=== PATIENT | male | born 1965 | race Caucasian/White ===

== ENCOUNTER → 2024-07-30 | Outpatient (BNVA) | payer MEDICAID, SELFPAY | END | disposition home or self-care (01) | PROVIDERS: PCP Nurse Practitioner Family; Referring Provider Nurse Practitioner Family; Visit Provider Urology | DX: N40.1 Benign prostatic hyperplasia with lower urinary tract symptoms (principal); N13.8 Other obstructive and reflux uropathy; I13.0 Hypertensive heart and chronic kidney disease with heart failure and stage 1 through stage 4 chronic kidney disease, or unspecified chronic kidney disease; E11.22 Type 2 diabetes mellitus with diabetic chronic kidney disease; N18.30 Chronic kidney disease, stage 3 unspecified; I50.9 Heart failure, unspecified; I48.91 Unspecified atrial fibrillation; N20.0 Calculus of kidney | CPT/HCPCS: 81003; 99212; G0463 ==

== ENCOUNTER → 2024-09-03 | Outpatient (CLI) | payer MEDICAID, SELFPAY | END | disposition home or self-care (01) | PROVIDERS: PCP Obstetrics & Gynecology; Referring Provider Obstetrics & Gynecology; Visit Provider Surgery | DX: E11.621 Type 2 diabetes mellitus with foot ulcer (principal); L97.422 Non-pressure chronic ulcer of left heel and midfoot with fat layer exposed; S91.102A Unspecified open wound of left great toe without damage to nail, initial encounter; S91.301A Unspecified open wound, right foot, initial encounter; X58.XXXA Exposure to other specified factors, initial encounter; I10 Essential (primary) hypertension; N18.9 Chronic kidney disease, unspecified; I50.9 Heart failure, unspecified; Z72.0 Tobacco use; E11.40 Type 2 diabetes mellitus with diabetic neuropathy, unspecified; Z79.84 Long term (current) use of oral hypoglycemic drugs; M10.9 Gout, unspecified; I49.9 Cardiac arrhythmia, unspecified; I48.91 Unspecified atrial fibrillation | CPT/HCPCS: 11042; 99213; A9270; G0463 ==

== ENCOUNTER → 2024-09-10 | Outpatient (CLI) | payer MEDICAID, SELFPAY | END | disposition home or self-care (01) | LOC: SWHD 08:34 | PROVIDERS: PCP Nurse Practitioner Family; Referring Provider Nurse Practitioner Family; Visit Provider Student in an Organized Health Care Education/Training Program | DX: E11.621 Type 2 diabetes mellitus with foot ulcer (principal); L97.422 Non-pressure chronic ulcer of left heel and midfoot with fat layer exposed; S91.102A Unspecified open wound of left great toe without damage to nail, initial encounter; S91.301A Unspecified open wound, right foot, initial encounter; X58.XXXA Exposure to other specified factors, initial encounter; I10 Essential (primary) hypertension; N18.9 Chronic kidney disease, unspecified; I50.9 Heart failure, unspecified; Z72.0 Tobacco use; E11.40 Type 2 diabetes mellitus with diabetic neuropathy, unspecified; Z79.84 Long term (current) use of oral hypoglycemic drugs; M10.9 Gout, unspecified; I49.9 Cardiac arrhythmia, unspecified; I48.91 Unspecified atrial fibrillation | CPT/HCPCS: 11042; A9270 ==

== ENCOUNTER → 2024-09-17 | Outpatient (CLI) | payer MEDICAID, SELFPAY | END | disposition home or self-care (01) | LOC: SWHD 09:05 | PROVIDERS: PCP Nurse Practitioner Family; Referring Provider Nurse Practitioner Family; Visit Provider Student in an Organized Health Care Education/Training Program | DX: E11.621 Type 2 diabetes mellitus with foot ulcer (principal); L97.422 Non-pressure chronic ulcer of left heel and midfoot with fat layer exposed; S91.102A Unspecified open wound of left great toe without damage to nail, initial encounter; S91.301A Unspecified open wound, right foot, initial encounter; X58.XXXA Exposure to other specified factors, initial encounter; N18.9 Chronic kidney disease, unspecified; I50.9 Heart failure, unspecified; Z72.0 Tobacco use; E11.40 Type 2 diabetes mellitus with diabetic neuropathy, unspecified; Z79.84 Long term (current) use of oral hypoglycemic drugs; M10.9 Gout, unspecified; I49.9 Cardiac arrhythmia, unspecified; I48.91 Unspecified atrial fibrillation | CPT/HCPCS: 11042; A9270 ==

== ENCOUNTER → 2024-10-01 | Outpatient (CLI) | payer MEDICAID, SELFPAY | END | disposition home or self-care (01) | LOC: SWHD 08:49 | PROVIDERS: PCP Nurse Practitioner Family; Referring Provider Nurse Practitioner Family; Visit Provider Student in an Organized Health Care Education/Training Program | DX: I96 Gangrene, not elsewhere classified (principal); E11.621 Type 2 diabetes mellitus with foot ulcer; L97.422 Non-pressure chronic ulcer of left heel and midfoot with fat layer exposed; S91.102A Unspecified open wound of left great toe without damage to nail, initial encounter; S91.301A Unspecified open wound, right foot, initial encounter; X58.XXXA Exposure to other specified factors, initial encounter; N18.9 Chronic kidney disease, unspecified; I50.9 Heart failure, unspecified; E11.40 Type 2 diabetes mellitus with diabetic neuropathy, unspecified; Z79.84 Long term (current) use of oral hypoglycemic drugs; M10.9 Gout, unspecified; I49.9 Cardiac arrhythmia, unspecified; I48.91 Unspecified atrial fibrillation | CPT/HCPCS: 11042; A9270 ==

== ENCOUNTER → 2024-10-15 | Outpatient (CLI) | payer MEDICAID, SELFPAY | END | disposition home or self-care (01) | LOC: SWHD 08:53 | PROVIDERS: PCP Nurse Practitioner Family; Referring Provider Nurse Practitioner Family; Visit Provider Student in an Organized Health Care Education/Training Program | DX: E11.621 Type 2 diabetes mellitus with foot ulcer (principal); L97.422 Non-pressure chronic ulcer of left heel and midfoot with fat layer exposed; S91.102A Unspecified open wound of left great toe without damage to nail, initial encounter; S91.301A Unspecified open wound, right foot, initial encounter; X58.XXXA Exposure to other specified factors, initial encounter; N18.9 Chronic kidney disease, unspecified; I50.9 Heart failure, unspecified; E11.40 Type 2 diabetes mellitus with diabetic neuropathy, unspecified; Z79.84 Long term (current) use of oral hypoglycemic drugs; M10.9 Gout, unspecified; I49.9 Cardiac arrhythmia, unspecified; I48.91 Unspecified atrial fibrillation | CPT/HCPCS: 11042; A9270 ==

== ENCOUNTER → 2024-11-06 | Outpatient (CLI) | payer MEDICAID, SELFPAY | END | disposition home or self-care (01) | LOC: SWHD 08:45 | PROVIDERS: PCP Nurse Practitioner Family; Referring Provider Nurse Practitioner Family; Visit Provider Student in an Organized Health Care Education/Training Program | DX: E11.621 Type 2 diabetes mellitus with foot ulcer (principal); L97.422 Non-pressure chronic ulcer of left heel and midfoot with fat layer exposed; S91.102A Unspecified open wound of left great toe without damage to nail, initial encounter; S91.301A Unspecified open wound, right foot, initial encounter; X58.XXXA Exposure to other specified factors, initial encounter; N18.9 Chronic kidney disease, unspecified; I50.9 Heart failure, unspecified; E11.40 Type 2 diabetes mellitus with diabetic neuropathy, unspecified; Z79.84 Long term (current) use of oral hypoglycemic drugs; M10.9 Gout, unspecified; I49.9 Cardiac arrhythmia, unspecified; I48.91 Unspecified atrial fibrillation | CPT/HCPCS: 11042; A9270 ==

== ENCOUNTER → 2024-11-20 | Outpatient (CLI) | payer MEDICAID, SELFPAY | END | disposition home or self-care (01) | LOC: SWHD 08:34 | PROVIDERS: PCP Nurse Practitioner Family; Referring Provider Nurse Practitioner Family; Visit Provider Surgery | DX: E11.621 Type 2 diabetes mellitus with foot ulcer (principal); L97.422 Non-pressure chronic ulcer of left heel and midfoot with fat layer exposed; S91.102A Unspecified open wound of left great toe without damage to nail, initial encounter; S91.301A Unspecified open wound, right foot, initial encounter; X58.XXXA Exposure to other specified factors, initial encounter; N18.9 Chronic kidney disease, unspecified; I50.9 Heart failure, unspecified; E11.40 Type 2 diabetes mellitus with diabetic neuropathy, unspecified; Z79.84 Long term (current) use of oral hypoglycemic drugs; M10.9 Gout, unspecified; I49.9 Cardiac arrhythmia, unspecified; I48.91 Unspecified atrial fibrillation | CPT/HCPCS: 11042; A9270 ==

== ENCOUNTER → 2024-12-07 | Outpatient (CLI) | payer MEDICAID, SELFPAY | END | disposition home or self-care (01) | LOC: SWHD 13:12 | PROVIDERS: PCP Nurse Practitioner Family; Referring Provider Nurse Practitioner Family; Visit Provider Surgery | DX: L97.422 Non-pressure chronic ulcer of left heel and midfoot with fat layer exposed (principal); S91.102A Unspecified open wound of left great toe without damage to nail, initial encounter; S91.301A Unspecified open wound, right foot, initial encounter; X58.XXXA Exposure to other specified factors, initial encounter; N18.9 Chronic kidney disease, unspecified; I50.9 Heart failure, unspecified; E11.40 Type 2 diabetes mellitus with diabetic neuropathy, unspecified; Z79.84 Long term (current) use of oral hypoglycemic drugs; M10.9 Gout, unspecified; I49.9 Cardiac arrhythmia, unspecified; I48.91 Unspecified atrial fibrillation | CPT/HCPCS: 11042; 97597; A9270 ==

== ENCOUNTER 2025-02-21 08:50 | Emergency (ER) | payer MEDICAID, SELFPAY ==
--- NOTE | 2025-02-21 09:03 | XR_ITS ---
Examination: Shoulder,right, 3 views Technique: Shoulder AP internal rotation, AP external rotation, Y view shoulder, 3 views Exam date and time :February 21, 2025, 0933 hrs. Indications: Patient fell several months ago with injury to the shoulder, shoulder pain. Findings: No acute fracture. No shoulder dislocation. Moderate osteoarthritis glenohumeral joint Impression: Moderate osteoarthritis glenohumeral joint
--- NOTE | 2025-02-21 09:03 | XR_ITS ---
Examination: Cervical spine 4 views Technique: AP, lateral, swimmer's lateral, coned AP odontoid cervical spine 4 views Date and time: February 21, 2025, 0925 hrs. Indications: Patient fell several months ago with injury to the neck, neck pain. Findings: Reversal normal cervical lordosis No acute cervical fracture. Minimal anterolisthesis C3 on C4 secondary to advanced degenerative disc disease C4-C5, C5-C6, C6-C7 The odontoid is intact Impression: No acute cervical fracture
[2025-02-21 09:10] VITALS: BP 138/69; PULSE 62; RESP 20; TEMP 36.7; O2SAT 97; BMI 23.1
--- NOTE | 2025-02-21 10:15 | PD.EDUPEX ---
Upper Extremity Injury RME/HPI General Chief Complaint: Extremity Injury, Upper Stated Complaint: right shoulder numb, painful Time Seen by Provider: 02/21/25 08:53 Arrival date/time: 02/21/25 08:50 This is a case of 59-year-old male who came into the emergency room due to right shoulder pain radiating to the right side of the neck on and off for 6 months patient was seen by the primary care physician and was treated only for arthritis worsening of this pain today this patient decided to start consult here in the emergency room denies any chest pain shortness of breath or palpitation denies any numbness weakness tingling sensation or incontinence to urine or stool denies any injury or trauma Limitations: no limitations Related Data Home Medications ?Medication ?Instructions ?Recorded ?Confirmed trazodone 100 mg tablet 100 mg PO HS 06/19/21 07/30/24 oxycodone 30 mg tablet 30 mg PO BID 06/20/21 07/30/24 albuterol 90 mcg/actuation aerosol 180 mcg inhalation [id number] PRN 04/23/22 07/30/24 inhaler Shortness Of Breath carvedilol 3.125 mg tablet 1 tab PO BID 04/23/22 07/30/24 cyclobenzaprine 10 mg tablet 1 tab PO TID 04/23/22 07/30/24 gabapentin 600 mg tablet 1 tab PO TID 04/23/22 07/30/24 loratadine 10 mg tablet 10 mg PO QDAY 04/23/22 07/30/24 semaglutide 0.25 mg or 0.5 mg (2 0.5 mg subcut QWEEK 04/23/22 07/30/24 mg/1.5 mL) subcutaneous pen injector (Ozempic) metformin 500 mg tablet 500 mg PO BID 07/30/24 07/30/24 rivaroxaban 20 mg tablet (Xarelto) 20 mg PO QDAY 07/30/24 07/30/24 Previous Rx's ?Medication ?Instructions ?Recorded cyclobenzaprine 10 mg tablet 10 mg PO BID PRN muscle spasm #10 02/21/25 tabs tramadol 50 mg tablet 50 mg PO Q8H PRN pain #12 tabs 02/21/25 Allergies Allergy/AdvReac Type Severity Reaction Status Date / Time No Known Allergies Allergy Verified 02/21/25 08:59 Review of Systems Review of Systems Systems Reviewed: All systems reviewed, normal except as documented Constitutional Constitutional: Reports system reviewed and no additional complaints, except as documented and Reports as per HPI ENT Ears, Nose, Mouth, and Throat: Reports neck pain Cardiovascular Cardiovascular: Reports system reviewed and no additional complaints, except as documented and Reports as per HPI Respiratory Respiratory: Reports system reviewed and no additional complaints, except as documented and Reports as per HPI Gastrointestinal Gastrointestinal: Reports system reviewed and no additional complaints, except as documented and Reports as per HPI Musculoskeletal Musculoskeletal: Reports system reviewed and no additional complaints, except as documented, Reports as per HPI, Denies abnormal gait, Denies arthralgias, Denies atrophy, Denies back pain, Denies deformity, Denies joint swelling, Denies limited range of motion, Denies loss of height, Denies muscle cramps, Denies muscle weakness, Denies myalgias, Reports neck pain, Denies numbness, Denies radiating pain into limb, Denies stiffness and Denies tingling Neurologic Neurologic: Reports system reviewed and no additional complaints, except as documented, Reports as per HPI, Denies abnormal gait, Denies numbness and Denies tingling Past Medical History Past Medical History NEUROLOGIC: Negative Seizures CARDIAC: Positive Congestive Heart Failure and Hypertension; Negative Cardiac Disorders RESPIRATORY: Negative Chronic Obstructive Pulmonary Disease (COPD) or Asthma GENITOURINARY: Negative Renal Disease MUSCULOSKELETAL: Positive Arthritis ENDOCRINE: Positive Endocrine Disorders and Diabetes Mellitus Type 2; Negative Diabetes Mellitus Type 1 HEMATOLOGIC: Negative Sickle Cell Disease OTHER HISTORY: Negative Autoimmune Disease, Falls, Blood Transfusions, Blood Transfusion Reaction or Anesthesia Reactions Family History FAMILY HISTORY: Positive Family Respiratory Disorders, Family Cardiac Disorders and Family Cancer; Negative Family Psychiatric Problems, Family Gastrointestinal Problems, Family Surgery or Family Anesthesia Reaction Surgical History SURGICAL: Positive Abdominal Surgery Social History SMOKING STATUS: Current every day smoker SUBSTANCE USE: marijuana ED Exam General Limitations: Present no limitations General appearance: Present alert and in no apparent distress Head Head exam: Present atraumatic, normocephalic and normal inspection Eye Eye exam: Present normal appearance, PERRL and EOMI ENT ENT exam: Present normal exam, normal oropharynx and mucous membranes moist Neck Neck exam: Present normal inspection, full ROM, trachea midline and tenderness (Mild tenderness on the right posterior neck no crepitation no deformity no swelling no redness negative paraspinal or paravertebral tenderness no CVA tenderness steady gait leg raise exam is normal); Absent meningismus, lymphadenopathy or thyromegaly Chest Chest inspection: Present normal inspection and symmetric chest wall rise; Absent tenderness or rash Respiratory Respiratory exam: Present normal lung sounds bilaterally; Absent respiratory distress, wheezes, stridor, accessory muscle use or prolonged expiratory phase Cardiovascular Cardiovascular exam: Present regular rate, normal rhythm and normal heart sounds; Absent bradycardia, tachycardia, irregular rhythm or systolic murmur Abdominal Exam Abdominal exam: Present soft and normal bowel sounds Extremities Exam Extremities exam: Present normal inspection and full ROM Expanded Upper Extremity Exam Shoulder exam: Present normal inspection and tenderness (Mild tenderness on the right shoulder no crepitation no deformity no redness no swelling ROM limited due to pain neurovascular intact); Absent swelling, abrasion, laceration, ecchymosis, deformity, crepitus, dislocation, erythema or tenderness over AC joint Arm exam: Present normal inspection and full ROM; Absent tenderness or swelling Back Exam Back exam: Present normal inspection and full ROM; Absent tenderness, CVA tenderness (R), CVA tenderness (L), muscle spasm, paraspinal tenderness, vertebral tenderness, rashes, sciatic notch tenderness (R), sciatic notch tenderness (L), straight leg raise (R) or straight leg raise (L) Neurological Exam Neurological exam: Present alert, oriented X3, CN II-XII intact, normal gait and reflexes normal; Absent motor sensory deficit Psychiatric Psychiatric exam: Present normal affect and normal mood Skin Skin exam: Present warm, dry, intact and normal color Course Quality Measures none Orders Category Date Time Status sling [Splint / Immobilizer] STAT Care 02/21/25 09:03 Active XR cervical spine 2-3V Stat Exams 02/21/25 09:03 Completed XR shoulder RT min 2V Stat Exams 02/21/25 09:03 Completed Dexamethasone Inj [Decadron Inj] Med 02/21/25 09:03 Discontinued 10 mg IM X1 ONE Ketorolac Inj [Toradol Inj] Med 02/21/25 09:03 Discontinued 30 mg IM X1 ONE Vital Signs Vital signs: Vital Signs Temperature 98.1 F 02/21/25 09:10 Pulse Rate 62 02/21/25 09:10 Respiratory Rate 20 02/21/25 09:10 Blood Pressure 138/69 H 02/21/25 09:10 Pulse Oximetry (%) 97 02/21/25 09:10 Oxygen Delivery Method Room Air 02/21/25 09:10 Patient vital signs stable BP stable not tachycardic not tachypneic not hypoxic oxygen saturation is 97% in room air Extremity Injury MDM Narrative MDM Narrative:: This is a case of 59-year-old male who came into the emergency room due to right shoulder pain radiating to the right side of the neck on and off for 6 months patient was seen by the primary care physician and was treated only for arthritis worsening of this pain today this patient decided to start consult here in the emergency room denies any chest pain shortness of breath or palpitation denies any numbness weakness tingling sensation or incontinence to urine or stool denies any injury or trauma physical examination patient is awake alert oriented not in distress nontoxic looking noted mild to moderate tenderness on palpation on the right side of the neck and right shoulder no crepitation no deformity no redness no swelling ROM is limited due to pain in the right shoulder neurovascular intact patient has no paraspinal no paravertebral tenderness no crepitation no deformity leg raise exam is normal at the time of exam no signs and symptoms of cauda equina x-ray of the right shoulder showed osteoarthritis x-ray of the cervical showed DDD cervical I have a long discussion with the patient patient needs to see a neurosurgeon for possible MRI to rule out herniated disc on the cervical area and to be referred for Ortho for osteoarthritis of her right shoulder patient was given sling patient tolerated well neurovascular intact patient was given Toradol and dexamethasone which pain improved and resolved patient was prescribed with Flexeril for muscle relaxant and tramadol for pain and he was advised not to take the medication at the same time Patient was discharged with comfortable condition walking with stable gait. Patient verbalized no further complains explained diagnosis and answered patient question. Patient is comfortable with the proposed management plan including the need to follow up with his/her primary care physician and any specialist if applicable Discussed patient for any urgent condition or worsening sx, He/She needed to go to emergency room immediately or call 911. Patient acknowledge the responsibility to follow up as instructed and to monitor her/his symptoms. For any persistence of the symptoms for more than 3-5 days return precaution advised. Discussed the result of the test and was given printed discharge instruction Patient data External records reviewed:: [facility] previous records Clinical information provided by:: patient Social determinants that could affect healthcare access:: none Patient has the following chronic illnesses:: None How is presenting disease/condition affected by chronic disease/condition?: no chronic disease Evaluation data The following diagnostics were reviewed and interpreted by me:: radiology exam(s) Lab and/or radiology exams considered but not ordered:: Reviewed Interpretation Summary: Reviewed Medications / Prescriptions Medications or Prescriptions considered but not ordered:: Given Medication administrations:: Medication Administration History Discontinued Medications Dexamethasone Sodium Phosphate (Dexamethasone Sod Phos Inj 10 Mg/Ml Vial) 10 mg IM X1 ONE Stop: 02/21/25 09:04 Ketorolac Tromethamine (Ketorolac Inj 60 Mg/2 Ml Vial) 30 mg IM X1 ONE Stop: 02/21/25 09:04 Given Consultations Consultation(s) initiated? (list below): No Diagnosis Upper Extremity Injury Differential Diagnosis: other (DDD cervical osteoarthritis) Most likely diagnosis given after review of the tests above:: DDD cervical osteoarthritis Admission Indicated Admission indicated?: not indicated Admission Request Was there a request for admission?: No Admission Attestation Admission request attestation: Not indicated Disposition Plan Disposition Plan: Discharge Discharge Attestation Discharge Attestation: The patient and all family members were given an opportunity to ask questions and understood the discharge instructions. Discharge instructions specifically effects, indications for sooner follow up or return to the emergency department, and the expected course of current diagnosis. Patient condition: Stable Discharge Plan Plan Patient Disposition: HOME (Self Care) Prescriptions/Referrals Prescriptions/Med Rec: New tramadol 50 mg tablet 50 mg PO Q8H PRN (Reason: pain) Qty: 12 0RF cyclobenzaprine 10 mg tablet 10 mg PO BID PRN (Reason: muscle spasm) Qty: 10 0RF Rx Instructions: Do not take with tramadol at the same time No Action metformin 500 mg tablet 500 mg PO BID Xarelto 20 mg tablet 20 mg PO QDAY Rx Instructions: must administer with evening meal trazodone 100 mg tablet 100 mg PO HS Patient Comments: TAKE ONE TABLET BY MOUTH EVERY EVENING AT BED TIME oxycodone 30 mg tablet 30 mg PO BID Patient Comments: TAKE ONE TABLET BY MOUTH TWICE DAILY gabapentin 600 mg tablet 1 tab PO TID Ozempic 0.25 mg or 0.5 mg(2 mg/1.5 mL) Pen Injector 0.5 mg SUBCUT QWEEK cyclobenzaprine 10 mg tablet 1 tab PO TID carvedilol 3.125 mg tablet 1 tab PO BID Patient Comments: TAKE ONE TABLET BY MOUTH TWICE DAILY FOR BLOOD PRESSURE WITH FOOD loratadine 10 mg Tablet 10 mg PO QDAY albuterol 90 mcg/actuation Aerosol 180 mcg INHALATION [id number] PRN (Reason: Shortness Of Breath) Rx Instructions: q 4 to 6 hours Referrals: Kat Braun, [employer] NURSERYMAN [Primary Care Provider] - In 1 week Problem List Clinical Impression: Osteoarthritis, DDD (degenerative disc disease), cervical, Acute pain of right shoulder Patient/Caregiver Discharge Instructions Education Materials: Cervical Disk Problems, ED Degenerative Disk Disease, Osteoarthritis Additional Instructions: Follow-up with your primary care physician in 2 days for reevaluation and to be referred to a neurosurgeon for further evaluation and treatment of DDD cervical to have MRI to rule out herniated disks you need also to see a orthopedic surgeon for further evaluation and treatment of your osteoarthritis of the right shoulder ice pack and warm compress as needed for pain worsening symptoms or any emergent concerns such as numbness weakness tingling sensation incontinence to urine or stool call 911 or go to the nearest emergency room keep the sling in place until cleared by your primary care physician Print Language: Macedonian Stand Alone Forms: Michelle Award Info., Patient Portal Info Letter PA/PROCUREMENT ENGINEER Supervising Physician PA/PROCUREMENT ENGINEER Supervising Physician: dr [email or web address]
[2025-02-21] MEDS: KETOROLAC INJ 60 MG/2 ML VIAL 30 MG IM (11:06)
[2025-02-21] MEDS: DEXAMETHASONE SOD PHOS INJ 10 MG/ML VIAL IM (11:07)
== END 2025-02-21 11:16 | disposition home or self-care (01) ==
PROVIDERS: Emergency Provider Emergency Medicine; PCP Nurse Practitioner Family
DX: M19.011 Primary osteoarthritis, right shoulder (principal); M54.2 Cervicalgia
CPT/HCPCS: 72040; 73030; 96372; 99283; J1100; J1885

== ENCOUNTER 2025-07-10 13:34 | Emergency (ER) | payer MEDICAID, SELFPAY ==
[2025-07-10 14:19] VITALS: BP 144/74; PULSE 80; RESP 20; TEMP 37.1; O2SAT 95; BMI 26.4
--- NOTE | 2025-07-10 14:38 | XR_ITS ---
Examination: CT abdomen with intravenous contrast CT pelvis with intravenous contrast 2-D coronal reconstructions 2-D sagittal reconstructions Date and time of exam: July 10, 2025, 1646 hours, comparison CT chest abdomen pelvis April 07, 2025 INDICATIONS: Blunt trauma to the abdomen, patient fell on the right side of the abdomen with mid abdominal pain and back pain today. CTDI: vol (mGy) 9.77 DLP: (mGycm) 579 Technique: Multiple axial sections of the abdomen and pelvis have been obtained. 64 slice high-resolution scanner used. 3 mm axial sections have been obtained, post intravenous injection 60 cc [id number] 2-D sagittal, coronal reconstructions obtained. Low dose protocols were performed. One or more of the following dose reduction techniques were used; automated exposure control, adjustment of the mA and/or KV according to patient size, use of iterative reconstruction technique. Findings: Multiple old left-sided rib fractures including nonunion left old 10th rib fracture Large left pleural effusion with atelectasis left lower lobe Pneumonia versus contusion left lower lobe axial image 4 No liver splenic or renal laceration, right renal calculi, the largest 6 mm Normal appendix Negative for pneumoperitoneum Abdominal aorta is intact, calcified No free body in the abdomen or pelvis Normal seminal vesicles Mild prostatomegaly Urinary bladder intact with urinary bladder wall thickening anteriorly up to 9 mm Small fat-containing left inguinal hernia Grade 1 spondylolisthesis L5 on S1 No acute lumbar fracture Advanced degenerative disc disease L3-L4, L4-L5, L5-S1 Sacral segments iliac bones and hips appear intact IMPRESSION: Multiple old left-sided rib fractures Large left pleural effusion with atelectasis left lower lobe Pneumonia versus pulmonary contusion left lower lobe, clinical correlation advised No abdominal parenchymal laceration Nonobstructing right renal calculi Normal appendix Negative for pneumoperitoneum Abdominal aorta is intact with no free blood in the abdomen or pelvis Cystitis pattern
--- NOTE | 2025-07-10 14:41 | PD.EDRME ---
Rapid Medical Screening Exam RME Arrival date/time: 07/10/25 13:34 Chief Complaint: Fall Vital signs: Vital Signs Temperature 98.8 F 07/10/25 14:19 Pulse Rate 80 07/10/25 14:19 Respiratory Rate 20 07/10/25 14:19 Blood Pressure 144/74 H 07/10/25 14:19 Pulse Oximetry (%) 95 07/10/25 14:19 Oxygen Delivery Method Room Air 07/10/25 14:19 RME Narrative: Patient was walking tripped and sustained blunt abdominal trauma complaining of abdominal pain and back pain I briefly performed a screening evaluation to initiate work-up and expedite care. Complete history, physical exam, and plan of care is deferred to the provider in the main ED. Exam: Head: Normocephalic, atraumatic. Respiratory: Normal effort. No respiratory distress or accessory muscle use. Neuro: Speech normal. Skin: Warm, dry, normal color. Psych: Pleasant. Normal affect. Cooperative. Clinical Impression: Blunt abdominal trauma
[2025-07-10 15:13] LABS: Basophils # (Auto) 0.1 Thou/mm3 (0.0-0.2); Basophils % (Auto) 1 % (0-2.5); Eosinophils # (Auto) 0.2 Thou/mm3 (0.0-0.5); Eosinophils % (Auto) 2 % (0-10); Hematocrit 46.1 % (41.0-53.0); Hemoglobin 14.3 g/dL (13.5-16.0); Immature Granulocytes Auto 0.01 Thou/mm3 (0.00-0.00); Lymphocytes # (Auto) 1.8 Thou/mm3 (1.0-4.8); Lymphocytes % (Auto) 22 % (10-50); Mean Corpuscular HGB Conc 31.0 g/dl (31.0-37.0); Mean Corpuscular Hemoglobin 26.8 pg (25.0-35.0); Mean Corpuscular Volume 86 fL (80-100); Monocytes # (Auto) 0.6 Thou/mm3 (0.0-0.8); Monocytes % (Auto) 8 % (0-12); Neutrophils # (Auto) 5.3 Thou/mm3 (1.8-7.7); Neutrophils % (Auto) 67 % (37-80); Nucleated Red Blood Cell # 0.00 Thou/mm3 (0.00-0.00); Nucleated Red Blood Cell % 0 /100 WBC (0); Platelet Count 130 Thou/mm3 (140-440); RDW Standard Deviation 48.9 fL (35.1-43.9); Red Blood Count 5.34 Miln/mm3 (4.50-5.90); White Blood Count 8.0 Thou/mm3 (3.8-10.6)
[2025-07-10 15:40] LABS: Alanine Aminotransferase 11 U/L (10-49); Albumin, Serum 4.5 gm/dL (3.4-4.8); Albumin/Globulin Ratio 2.1 (1.2-2.2); Alkaline Phosphatase 167 U/L (46-116); Anion Gap 6 (7-16); Aspartate Amino Transferase 12 U/L (0-34); BUN/Creatinine Ratio 9 Ratio (12-20); Bilirubin,Total 0.7 mg/dL (0.3-1.2); Blood Urea Nitrogen 11 mg/dL (9-23); Calcium 9.3 mg/dL (8.3-10.6); Calcium (Corrected) 9.3 mg/dL (8.5-10.1); Carbon Dioxide 30.4 mMol/L (20.0-31.0); Chloride 105 mMol/L (98-107); Creatinine (Component) 1.2 mg/dL (0.6-1.3); Estimated Creatinine Clearance 73.1 mL/min (>60); Globulin 2.1 gm/dL (2.3-3.5); Glucose 91 mg/dL (74-106); Lipase 21 U/L (12-53); Osmolality,Calculated 280 (275-295); Potassium 4.0 mMol/L (3.4-5.1); Sodium 141 mMol/L (136-145); Total Protein 6.6 gm/dL (5.7-8.2); eGFR > 60 See Note
[2025-07-10 16:22] VITALS: BP 152/77; PULSE 68; RESP 18; TEMP 36.4; O2SAT 95
--- NOTE | 2025-07-10 16:55 | PD.EDFALL ---
ED Fall Injury RME/HPI General Chief Complaint: Fall Stated Complaint: PAIN TO ABDOMEN AND BACK POST GROUND LEVEL FALL Time Seen by Provider: 07/10/25 16:48 Arrival date/time: 07/10/25 13:34 60-year-old male patient came in for evaluation regarding ground-level fall. Incident happened earlier today's ground-level fall, patient now complaining of left posterior chest pain, low back pain and abdominal pain, described as dull ache, severity moderate. Patient also complained of shortness of breath. Denies any LOC denies any head injury denies any other complaints patient is ambulatory. Patient is taking Xarelto. RME / HPI RME / HPI Narrative: Patient was walking tripped and sustained blunt abdominal trauma complaining of abdominal pain and back pain I briefly performed a screening evaluation to initiate work-up and expedite care. Complete history, physical exam, and plan of care is deferred to the provider in the main ED. Exam: Head: Normocephalic, atraumatic. Respiratory: Normal effort. No respiratory distress or accessory muscle use. Neuro: Speech normal. Skin: Warm, dry, normal color. Psych: Pleasant. Normal affect. Cooperative. Impression: Blunt abdominal trauma Related Data Home Medications ?Medication ?Instructions ?Recorded ?Confirmed trazodone 100 mg tablet 100 mg PO HS 06/19/21 07/30/24 oxycodone 30 mg tablet 30 mg PO BID 06/20/21 07/30/24 albuterol 90 mcg/actuation aerosol 180 mcg inhalation [id number] PRN 04/23/22 07/30/24 inhaler Shortness Of Breath carvedilol 3.125 mg tablet 1 tab PO BID 04/23/22 07/30/24 cyclobenzaprine 10 mg tablet 1 tab PO TID 04/23/22 07/30/24 gabapentin 600 mg tablet 1 tab PO TID 04/23/22 07/30/24 loratadine 10 mg tablet 10 mg PO QDAY 04/23/22 07/30/24 semaglutide 0.25 mg or 0.5 mg (2 0.5 mg subcut QWEEK 04/23/22 07/30/24 mg/1.5 mL) subcutaneous pen injector (Ozempic) metformin 500 mg tablet 500 mg PO BID 07/30/24 07/30/24 rivaroxaban 20 mg tablet (Xarelto) 20 mg PO QDAY 07/30/24 07/30/24 Previous Rx's ?Medication ?Instructions ?Recorded cyclobenzaprine 10 mg tablet 10 mg PO BID PRN muscle spasm #10 02/21/25 tabs tramadol 50 mg tablet 50 mg PO Q8H PRN pain #12 tabs 02/21/25 Allergies Allergy/AdvReac Type Severity Reaction Status Date / Time No Known Allergies Allergy Verified 07/10/25 13:37 Review of Systems Review of Systems Narrative Review of Systems: Review of system reviewed and within normal limits except mentioned in HPI ED Exam Narrative Physical exam: VITAL SIGNS: Reviewed. GENERAL APPEARANCE: Alert and interactive, follows commands, no acute distress, HEAD AND FACE: Non-traumatic. ENT: PERRL, pink conjunctivitis, eyelid no trauma, Mucous membrane moist. NECK: Supple, nontender, no nuchal rigidity. CHEST: No tenderness, no crepitus, no paradoxical movement, no retractions. LUNGS: Clear, well ventilated, symmetric, no rales, no wheezing, no ronchi, no stridor, good breath sounds bilaterally. HEART: Regular rate, regular rhythm, no murmur, no gallops. ABDOMEN: Soft, positive bowel sounds, nondistended, no guarding, nontender, no rebound, no masses, RECTAL: Deferred. GENITAL: Deferred. NEUROLOGICAL: Gross motor function intact sensory function intact, Appropriate for age. MUSCULOSKELETAL: low back nontender, full range of motion. EXTREMITIES: Nontender, full range of motion. SKIN: Color pink, dry, no rash, no lacerations, no abrasions, no contusions. LYMPHATICS: Deferred. Course Quality Measures none Orders Category Date Time Status CT Screening NOW Care 07/10/25 14:[address] Screening X1 Care 07/10/25 14:[address] abdomen pelvis w con Stat Exams 07/10/25 14:[address] chest wo con Stat Exams 07/10/25 18:35 Completed CBC [CBC] Stat Lab 07/10/25 15:02 Completed CMP [Comprehensive Metabolic Panel] Stat Lab 07/10/25 15:02 Completed Lipase Stat Lab 07/10/25 15:02 Completed PT [Prothrombin Time with INR] Stat Lab 07/10/25 18:07 Completed PTT [Partial Thromboplastin Time] Stat Lab 07/10/25 18:07 Completed Morphine* Inj Med 07/10/25 17:55 Discontinued 4 mg IVP X1 ONE Morphine* Inj Med 07/10/25 20:59 Discontinued 4 mg IVP X1 ONE Ondansetron Odt [Zofran Odt] Med 07/10/25 17:55 Discontinued 4 mg PO X1 ONE Vital Signs Vital signs: Vital Signs Temperature 98.8 F 07/10/25 14:19 Pulse Rate 80 07/10/25 14:19 Respiratory Rate 20 07/10/25 14:19 Blood Pressure 144/74 H 07/10/25 14:19 Pulse Oximetry (%) 95 07/10/25 14:19 Oxygen Delivery Method Room Air 07/10/25 14:19 Fall MDM Narrative MDM Narrative:: 07/10/25 13:34 60-year-old male patient came in for evaluation regarding ground-level fall. Incident happened earlier today's ground-level fall, patient now complaining of left posterior chest pain, low back pain and abdominal pain, described as dull ache, severity moderate. Patient also complained of shortness of breath. Denies any LOC denies any head injury denies any other complaints patient is ambulatory. Patient is taking Xarelto. he had a history of multiple rib fractures several months ago. he had oxygen at home. Patient's laboratory workup today came back with no sign of leukocytosis, no anemia noted hemoglobin 14.[address] showed thoracic aorta pulmonary arteries intact No pneumothorax Large left pleural effusion with atelectasis in the left lower lobe Multiple old left-sided rib fractures CT scan of the abdomen pelvis showed Multiple old left-sided rib fractures Large left pleural effusion with atelectasis left lower lobe Pneumonia versus pulmonary contusion left lower lobe, clinical correlation advised No abdominal parenchymal laceration Nonobstructing right renal calculi Normal appendix Negative for pneumoperitoneum Abdominal aorta is intact with no free blood in the abdomen or pelvis Cystitis pattern Patient was advised to return to emergency room this coming Saturday for diagnostic thoracentesis. Currently patient does not need emergency thoracentesis, patient is not hypoxic, not tachycardic, and having chronic back pain. I ordered for morphine is helped him a lot. he is satting 95% on room air. Patient data External records reviewed:: None Clinical information provided by:: patient and family Social determinants that could affect healthcare access:: none Patient has the following chronic illnesses:: History of COPD, history of multiple rib fracture in the past How is presenting disease/condition affected by chronic disease/condition?: exacerbated by Evaluation data The following diagnostics were reviewed and interpreted by me:: lab results and radiology exam(s) Lab and/or radiology exams considered but not ordered:: None Interpretation Summary: See above Medications / Prescriptions Medications or Prescriptions considered but not ordered:: None Medication administrations:: Medication Administration History Discontinued Medications Morphine Sulfate (Morphine Sulf Inj 4 Mg/Ml Vial) 4 mg IVP X1 ONE Stop: 07/10/25 17:56 Last Admin: 07/10/25 18:01 Dose: 4 mg Documented By: EF Morphine Sulfate (Morphine Sulf Inj 4 Mg/Ml Vial) 4 mg IVP X1 ONE Stop: 07/10/25 21:00 Ondansetron HCl (Ondansetron Odt 4 Mg Tabrap) 4 mg PO X1 ONE; Protocol Stop: 07/10/25 17:56 Last Admin: 07/10/25 18:01 Dose: 4 mg Documented By: EF Morphine, Zofran Consultations Consultation(s) initiated? (list below): No Diagnosis Fall Differential Diagnosis: other (Fall, incidental finding of pleural effusion, old rib fracture chronic back pain) Most likely diagnosis given after review of the tests above:: Fall, fluid effusion, old rib fractures Admission Indicated Admission indicated?: not indicated Admission Request Was there a request for admission?: No Disposition Plan Disposition Plan: Discharge Discharge Attestation Discharge Attestation: The patient and all family members were given an opportunity to ask questions and understood the discharge instructions. Discharge instructions specifically effects, indications for sooner follow up or return to the emergency department, and the expected course of current diagnosis. Patient condition: Stable Discharge Plan Plan Patient Disposition: HOME (Self Care) Discharge Disposition comment: Stable Prescriptions/Referrals Prescriptions/Med Rec: No Action metformin 500 mg tablet 500 mg PO BID Xarelto 20 mg tablet 20 mg PO QDAY Rx Instructions: must administer with evening meal trazodone 100 mg tablet 100 mg PO HS Patient Comments: TAKE ONE TABLET BY MOUTH EVERY EVENING AT BED TIME oxycodone 30 mg tablet 30 mg PO BID Patient Comments: TAKE ONE TABLET BY MOUTH TWICE DAILY gabapentin 600 mg tablet 1 tab PO TID Ozempic 0.25 mg or 0.5 mg(2 mg/1.5 mL) Pen Injector 0.5 mg SUBCUT QWEEK cyclobenzaprine 10 mg tablet 1 tab PO TID carvedilol 3.125 mg tablet 1 tab PO BID Patient Comments: TAKE ONE TABLET BY MOUTH TWICE DAILY FOR BLOOD PRESSURE WITH FOOD loratadine 10 mg Tablet 10 mg PO QDAY albuterol 90 mcg/actuation Aerosol 180 mcg INHALATION [id number] PRN (Reason: Shortness Of Breath) Rx Instructions: q 4 to 6 hours tramadol 50 mg tablet 50 mg PO Q8H PRN (Reason: pain) Qty: 12 0RF cyclobenzaprine 10 mg tablet 10 mg PO BID PRN (Reason: muscle spasm) Qty: 10 0RF Rx Instructions: Do not take with tramadol at the same time Referrals: No Primary/Family,Physician [Primary Care Provider] - In 1 week Problem List Clinical Impression: Fall, Pleural effusion on left, Chronic back pain Patient/Caregiver Discharge Instructions Discharge Activity: activity as tolerated Education Materials: Back Safety Bed Additional Instructions: Thank you for the opportunity for serving you today. You are stable for discharged . You are advised to: Follow-up with your PCP in 1 to 2 days Return to ED for worsening of symptoms, shortness of breath, worsening pain Increase oral fluids Continue taking your pain medication. I wanted to come back to the emergency room this coming Saturday around 8 in the morning for diagnostic thoracentesis Print Language: [place] Stand Alone Forms: Michelle Award Info., Patient Portal Info Letter PA/MARÍA Supervising Physician HUMA/MARÍA Supervising Physician: MD Maximiliano
[2025-07-10] MEDS: ONDANSETRON ODT 4 MG TABRAP PO (18:01)
[2025-07-10] MEDS: MORPHINE SULF INJ 4 MG/ML VIAL IVP ×2 (18:01→21:04)
[2025-07-10 18:16] VITALS: BP 155/81; PULSE 96; RESP 18; TEMP 36.8; O2SAT 96
--- NOTE | 2025-07-10 18:35 | XR_ITS ---
Examination: CT chest, without intravenous contrast. Sagittal and coronal 2-D reconstructions. Exam date and time: July 10, 2025, 1850 hours, comparison April 07, 2025 INDICATIONS: Patient fell on the right side of the chest today chest pain CTDI:vol (mGy) 15.3 DLP: (mGycm) 575 Technique: Multiple 3.0 mm axial sections of the chest to been obtained. Bone and lung density settings are obtained. Sagittal and coronal 2-D reconstructions have been obtained. Low dose protocols were performed. One or more of the following dose reduction techniques were used; automated exposure control, adjustment of the mA and/or KV according to patient size, use of iterative reconstruction technique. Findings: Thoracic aorta pulmonary arteries intact No hemopericardium Heavy calcification left main and left anterior descending left circumflex right coronary arteries Mild enlargement cardiac contour Moderate to large left pleural effusion Atelectasis in the left lower lung zone No pneumothorax Manubrium sternum intact Multiple old left-sided rib fractures including nonunion of an old left 10th rib fracture IMPRESSION: Thoracic aorta pulmonary arteries intact No pneumothorax Large left pleural effusion with atelectasis in the left lower lobe Multiple old left-sided rib fractures
[2025-07-10 19:25] VITALS: BP 141/70; PULSE 70; RESP 15; TEMP 36.7; O2SAT 93
[2025-07-10 19:57] LABS: INR 1.0 (0.9-1.3); Partial Thromboplastin Time 27.8 Seconds (22.0-36.0); Prothrombin Time 11.0 Seconds (9.0-12.2)
[2025-07-10 21:20] VITALS: BP 141/70; PULSE 70; RESP 18; O2SAT 95
== END 2025-07-10 21:22 | disposition home or self-care (01) ==
PROVIDERS: Nurse Practitioner Family; Physician Assistant; Emergency Provider Family Medicine
DX: S39.91XA Unspecified injury of abdomen, initial encounter (principal); W18.30XA Fall on same level, unspecified, initial encounter; G89.29 Other chronic pain; J90 Pleural effusion, not elsewhere classified; Z79.01 Long term (current) use of anticoagulants; Z79.84 Long term (current) use of oral hypoglycemic drugs; Z79.891 Long term (current) use of opiate analgesic
CPT/HCPCS: 36415; 71250; 74177; 80053; 83690; 85025; 85610; 85730; 96374; 96376; 99283; A4649; J2270; Q0162; Q9967

== ENCOUNTER 2025-07-12 07:56 | Emergency (ER) | payer MEDICAID, SELFPAY ==
[2025-07-12] VITALS (7 sets, daily range): BP systolic 118–139; BP diastolic 65–82; PULSE 60–95; RESP 16–20; TEMP 36.8–36.9; O2SAT 89–100; BMI 26.4
--- NOTE | 2025-07-12 08:08 | PD.EDSOB ---
ED SOB =RME/HPI General Chief Complaint: Shortness of Breath/Dyspnea Stated Complaint: NEEDS THORACENTESIS Time Seen by Provider: 07/12/25 07:59 Arrival date/time: 07/12/25 07:56 RME / HPI RME / HPI Narrative: See [facility] for Dr. Sheth's HPI documentation. Related Data Home Medications ?Medication ?Instructions ?Recorded ?Confirmed trazodone 100 mg tablet 100 mg PO HS 06/19/21 07/30/24 oxycodone 30 mg tablet 30 mg PO BID 06/20/21 07/30/24 albuterol 90 mcg/actuation aerosol 180 mcg inhalation [id number] PRN 04/23/22 07/30/24 inhaler Shortness Of Breath carvedilol 3.125 mg tablet 1 tab PO BID 04/23/22 07/30/24 cyclobenzaprine 10 mg tablet 1 tab PO TID 04/23/22 07/30/24 gabapentin 600 mg tablet 1 tab PO TID 04/23/22 07/30/24 loratadine 10 mg tablet 10 mg PO QDAY 04/23/22 07/30/24 semaglutide 0.25 mg or 0.5 mg (2 0.5 mg subcut QWEEK 04/23/22 07/30/24 mg/1.5 mL) subcutaneous pen injector (Ozempic) metformin 500 mg tablet 500 mg PO BID 07/30/24 07/30/24 rivaroxaban 20 mg tablet (Xarelto) 20 mg PO QDAY 07/30/24 07/30/24 Previous Rx's ?Medication ?Instructions ?Recorded cyclobenzaprine 10 mg tablet 10 mg PO BID PRN muscle spasm #10 02/21/25 tabs tramadol 50 mg tablet 50 mg PO Q8H PRN pain #12 tabs 02/21/25 albuterol sulfate 90 mcg/actuation 2 puff inhalation Q6H PRN 07/12/25 aerosol inhaler shortness of breath or wheezing #8.5 grams azithromycin 500 mg tablet 500 mg PO QDAY 3 days #3 tabs 07/12/25 (Zithromax TRI-DAVID) cefdinir 300 mg capsule 300 mg PO BID #14 caps 07/12/25 prednisone 20 mg tablet 20 mg PO BID 3 days #6 tabs 07/12/25 Allergies Allergy/AdvReac Type Severity Reaction Status Date / Time No Known Allergies Allergy Verified 07/12/25 08:01 Review of Systems Review of Systems Systems Reviewed: All systems reviewed, normal except as documented Past Medical History Past Medical History NEUROLOGIC: Positive Traumatic Brain Injury (2019) CARDIAC: Positive Atrial Fibrillation, Congestive Heart Failure and Hypertension MUSCULOSKELETAL: Positive Arthritis ENDOCRINE: Positive Endocrine Disorders and Diabetes Mellitus Type 2 Family History FAMILY HISTORY: Positive Family Respiratory Disorders, Family Cardiac Disorders and Family Cancer Surgical History SURGICAL: Positive Abdominal Surgery Social History SMOKING STATUS: Current some day smoker SUBSTANCE USE: marijuana ED Exam Narrative Physical exam: See MDM for Dr. Sheth's physical exam documentation. Course Quality Measures none Orders Category Date Time Status Bedside COVID-19 Antigen Test NOW Care 07/12/25 08:11 Completed EKG (ED ONLY) *Do not use* NOW Care 07/12/25 08:11 Completed Saline [Insert IV] NOW Care 07/12/25 08:11 Completed EKG (ED Only) Stat Exams 07/12/25 08:11 Draft XR chest 1V portable Stat Exams 07/12/25 08:11 Completed ABG [Arterial Blood Gas] Stat Lab 07/12/25 08:50 Completed BNP [B-Type Natriuretic Peptide] Stat Lab 07/12/25 08:23 Completed Bilirubin,Direct Stat Lab 07/12/25 08:23 Completed CBC Stat Lab 07/12/25 08:23 Completed CMP [Comprehensive Metabolic Panel] Stat Lab 07/12/25 08:23 Completed D-Dimer Stat Lab 07/12/25 08:23 Completed Free T3 Stat Lab 07/12/25 08:23 Completed Free T4 (Free Thyroxine) Stat Lab 07/12/25 08:23 Completed Influenza A & B Rapid Panel Stat Lab 07/12/25 08:35 Completed Magnesium Stat Lab 07/12/25 08:23 Completed TSH [Thyroid Stimulating Hormone] Stat Lab 07/12/25 08:23 Completed Troponin I Stat Lab 07/12/25 08:23 Completed UA, C/S IF [Urinalysis, C/S if Indicated] Stat Lab 07/12/25 08:35 Completed Albuterol/Ipratr Rt Patircia [Duoneb Rt Patricia] Med 07/12/25 11:47 Discontinued 3 ml INH X1 ONE Azithromycin Po [Zithromax PO] Med 07/12/25 11:47 Discontinued 500 mg PO X1 ONE MethylPREDNISolone.* [SoluMEDROL Inj] Med 07/12/25 11:47 Discontinued 125 mg IVP X1 ONE cefTRIAXone/D5w 1gm IV premix [Rocephin/D5w 1gm IV Med 07/12/25 11:47 Discontinued premix] 1 gm in 50 ml IV X1 Vital Signs Vital signs: Vital Signs Temperature 98.2 F 07/12/25 08:08 Pulse Rate 95 07/12/25 08:08 Respiratory Rate 16 07/12/25 08:08 Blood Pressure 139/82 H 07/12/25 08:08 Pulse Oximetry (%) 94 L 07/12/25 08:08 Oxygen Delivery Method Room Air 07/12/25 08:08 Pulse ox is 94% on room air which is adequate. Shortness of Breath / Dyspnea MDM Narrative MDM Narrative:: This section includes all my notes and documentations, including HPI, PE, and ED course. Gustavo Sheth MD HPI: 60-year-old male here with about a week history of worsening cough, productive cough, purulent sputum, and dyspnea. Was seen here the day before yesterday. Was told he had large left pleural effusion. Was to come here today for removal of the fluid. No other complaints. ROS: All negative except as documented in HPI. Physical Exam: General: Alert and oriented. No acute distress when remaining still. Eyes: Conjunctivae and lids clear. ENT: No nasal congestion. Neck: Supple. Heart: RRR. Lungs: No respiratory distress. Mildly air movement with rhonchi. Skin: Warm and dry. Neuro: Alert and oriented X 3. I reviewed all diagnostic test results: My interpretation of the EKG: NSR (69 bpm) with no ST-T changes. My interpretation of the chest x-ray is: Left pneumonia with small left pleural effusion Blood tests and urine tests unremarkable. Covid/Influenza are negative. At this point, diagnoses include: Pneumonia Small left pleural effusion Treatment here included: Rocephin 1 gram IV Solumedrol 125 mg IV Zithromax 500 mg PO Duoneb Some improvement noted. Patient requested discharge instead of hospitalization. Discussed potential risks, including worsening and sudden . Patient understood the risks and is willing to take the risks. We couldn't change his mind. Recommended outpatient follow-up. Based on my best medical judgment, made decision no further evaluation or treatment indicated at this time. Patient understands and agrees to the discharge instructions customized and printed, see below. Discharge instructions from Dr. Sheth: --You are being discharged home because you declined to be admitted and treated in the hospital. --Your main diagnosis is pneumonia. --Your left pleural effusion (fluid around the lungs) is minimal today. --No physical exertion for 3 days to help rest the lungs. ?No smoking or exposure to smoking or pets or dust or cold or humidity. --Zithromax and cefdinir to kill the germs causing the pneumonia. --Prednisone to help decrease the swelling in the airways. --Albuterol 2 puffs every 4-6 hours for 3 days to help keep the airways open. Then as needed for cough or shortness of breath. --See a private doctor 07/14/2025 for recheck. Ask for help until you are completely better. Ask to review all test results and official radiology reports, to make sure you receive all necessary follow-ups and monitoring. --Seek immediate medical care with worsening or with any concerns. Gustavo Sheth MD Patient data External records reviewed:: [facility] previous records Clinical information provided by:: patient Social determinants that could affect healthcare access:: none Patient has the following chronic illnesses:: CHF, hypertension, diabetes, COPD How is presenting disease/condition affected by chronic disease/condition?: exacerbated by Evaluation data The following diagnostics were reviewed and interpreted by me:: EKG tracing(s) (My interpretation of the EKG: NSR (69 bpm) with no ST-T changes. Gustavo Sheth MD) Lab and/or radiology exams considered but not ordered:: None Interpretation Summary: I reviewed all diagnostic test results: My interpretation of the EKG: NSR (69 bpm) with no ST-T changes. My interpretation of the chest x-ray is: Left pneumonia with small left pleural effusion Blood tests and urine tests unremarkable. Covid/Influenza are negative. Medications / Prescriptions Medications or Prescriptions considered but not ordered:: None Medication administrations:: Medication Administration History Discontinued Medications Albuterol/Ipratropium (Albuterol/Ipratropium (Duoneb) Rt Patricia 3 Ml Nebu) 3 ml INH X1 ONE Stop: 07/12/25 11:48 Last Admin: 07/12/25 12:20 Dose: 3 ml Documented By: [facility] Azithromycin (Azithromycin 250 Mg Tablet) 500 mg PO X1 ONE Stop: 07/12/25 11:48 Last Admin: 07/12/25 11:56 Dose: 500 mg Documented By: BY Ceftriaxone Sodium/Dextrose (Rocephin/D5w 1gm Iv Premix) 1 gm in 50 mls @ 100 mls/hr IV X1 ONE Stop: 07/12/25 12:16 Last Admin: 07/12/25 11:56 Dose: 100 mls/hr Documented By: BY Methylprednisolone Sodium Succinate (Methylprednisolone Sod Succ 62.5 Mg/Ml 2ml Vial) 125 mg IVP X1 ONE Stop: 07/12/25 11:48 Last Admin: 07/12/25 11:56 Dose: 125 mg Documented By: BY Treatment here included: Rocephin 1 gram IV Solumedrol 125 mg IV Zithromax 500 mg PO Duoneb Consultations Consultation(s) initiated? (list below): Yes Consultation #1 (Physician, Specialty, Details): See above Diagnosis Shortness of Breath Differential Diagnosis: acute exacerbation of chronic obstructive airways disease, congestive heart failure, community acquired pneumonia and asthma with exacerbation Most likely diagnosis given after review of the tests above:: Pneumonia Small left pleural effusion Admission Indicated Admission indicated?: not indicated Explain why admission is indicated or not indicated:: Patient requested discharge instead of hospitalization. Discussed potential risks, including worsening and sudden . Patient understood the risks and is willing to take the risks. We couldn't change his mind. Admission Request Was there a request for admission?: No Disposition Plan Disposition Plan: Discharge Discharge Attestation Discharge Attestation: The patient and all family members were given an opportunity to ask questions and understood the discharge instructions. Discharge instructions specifically effects, indications for sooner follow up or return to the emergency department, and the expected course of current diagnosis. Patient condition: Stable Discharge Plan Plan Patient Disposition: HOME (Self Care) Prescriptions/Referrals Prescriptions/Med Rec: New prednisone 20 mg tablet 20 mg PO BID 3 Days Qty: 6 0RF Taper: Prednisone Taper 20 mg DAILY for 2 Days and 0 Hour 10 mg DAILY for 2 Days and 0 Hour 5 mg DAILY for 7 Days and 0 Hour albuterol sulfate 90 mcg/actuation HFA aerosol inhaler 2 puff inhalation Q6H PRN (Reason: shortness of breath or wheezing) Qty: 8.5 0RF cefdinir 300 mg capsule 300 mg PO BID Qty: 14 0RF azithromycin [Zithromax TRI-DAVID] 500 mg tablet 500 mg PO QDAY 3 Days Qty: 3 0RF No Action metformin 500 mg tablet 500 mg PO BID Xarelto 20 mg tablet 20 mg PO QDAY Rx Instructions: must administer with evening meal trazodone 100 mg tablet 100 mg PO HS Patient Comments: TAKE ONE TABLET BY MOUTH EVERY EVENING AT BED TIME oxycodone 30 mg tablet 30 mg PO BID Patient Comments: TAKE ONE TABLET BY MOUTH TWICE DAILY gabapentin 600 mg tablet 1 tab PO TID Ozempic 0.25 mg or 0.5 mg(2 mg/1.5 mL) Pen Injector 0.5 mg SUBCUT QWEEK cyclobenzaprine 10 mg tablet 1 tab PO TID carvedilol 3.125 mg tablet 1 tab PO BID Patient Comments: TAKE ONE TABLET BY MOUTH TWICE DAILY FOR BLOOD PRESSURE WITH FOOD loratadine 10 mg Tablet 10 mg PO QDAY albuterol 90 mcg/actuation Aerosol 180 mcg INHALATION [id number] PRN (Reason: Shortness Of Breath) Rx Instructions: q 4 to 6 hours tramadol 50 mg tablet 50 mg PO Q8H PRN (Reason: pain) Qty: 12 0RF cyclobenzaprine 10 mg tablet 10 mg PO BID PRN (Reason: muscle spasm) Qty: 10 0RF Rx Instructions: Do not take with tramadol at the same time Referrals: Kat Braun SUBCONTRACT ADMINISTRATOR [Primary Care Provider] - In 1 week Problem List Clinical Impression: Pneumonia Patient/Caregiver Discharge Instructions Discharge Activity: activity as tolerated Education Materials: ED Pneumonia (Adult) Additional Instructions: Discharge instructions from Dr. Sheth: --You are being discharged home because you declined to be admitted and treated in the hospital. --Your main diagnosis is pneumonia. --Your left pleural effusion (fluid around the lungs) is minimal today. --No physical exertion for 3 days to help rest the lungs. ?No smoking or exposure to smoking or pets or dust or cold or humidity. --Zithromax and cefdinir to kill the germs causing the pneumonia. --Prednisone to help decrease the swelling in the airways. --Albuterol 2 puffs every 4-6 hours for 3 days to help keep the airways open. Then as needed for cough or shortness of breath. --See a private doctor 07/14/2025 for recheck. Ask for help until you are completely better. Ask to review all test results and official radiology reports, to make sure you receive all necessary follow-ups and monitoring. --Seek immediate medical care with worsening or with any concerns. Print Language: Citizen Of [place] Stand Alone Forms: Michelle Award Info., Patient Portal Info Letter
--- NOTE | 2025-07-12 08:11 | EKG_ITS ---
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
--- NOTE | 2025-07-12 08:11 | XR_ITS ---
EXAMINATION: AP chest single view TECHNIQUE: Portable sitting AP chest single view Date and time: July 12, 2025, 0812 hours, comparison June 17, 2023 INDICATION: Shortness of breath today. FINDINGS: Left perihilar left basilar pneumonia Small left pleural effusion Normal heart size Old left-sided rib fractures IMPRESSION: Left base pneumonia with small left pleural effusion
--- NOTE | 2025-07-12 08:46 | PC.NURSE ---
notified of patient needing new order for ultrasound thoracentesis
[2025-07-12 08:57] LABS: Base Excess 6 (-3-3); HCO3 33 mEq/L (20-26); Inspired Oxygen, FIO2 21 %; O2 Saturation 89 % (91-98); PCO2 53 mmHg (32.0-48.0); pH, Arterial 7.40 (7.35-7.45)
[2025-07-12 08:59] LABS: Collection Type, Urine Clean Catch; Squamous Epithelial Cell,Urine 0 /hpf (0-5)
[2025-07-12 08:59] LABS: Allen Test Performed/OK; PO2 51 mmHg (83-108); Puncture Site Right Brachial
[2025-07-12 09:03] LABS: Basophils # (Auto) 0.1 Thou/mm3 (0.0-0.2); Basophils % (Auto) 1 % (0-2.5); Eosinophils # (Auto) 0.2 Thou/mm3 (0.0-0.5); Eosinophils % (Auto) 3 % (0-10); Hematocrit 47.3 % (41.0-53.0); Hemoglobin 14.7 g/dL (13.5-16.0); Immature Granulocytes Auto 0.01 Thou/mm3 (0.00-0.00); Lymphocytes # (Auto) 1.4 Thou/mm3 (1.0-4.8); Lymphocytes % (Auto) 20 % (10-50); Mean Corpuscular HGB Conc 31.1 g/dl (31.0-37.0); Mean Corpuscular Hemoglobin 26.9 pg (25.0-35.0); Mean Corpuscular Volume 87 fL (80-100); Monocytes # (Auto) 0.6 Thou/mm3 (0.0-0.8); Monocytes % (Auto) 9 % (0-12); Neutrophils # (Auto) 4.8 Thou/mm3 (1.8-7.7); Neutrophils % (Auto) 68 % (37-80); Nucleated Red Blood Cell # 0.00 Thou/mm3 (0.00-0.00); Nucleated Red Blood Cell % 0 /100 WBC (0); Platelet Count 140 Thou/mm3 (140-440); RDW Standard Deviation 49.1 fL (35.1-43.9); Red Blood Count 5.47 Miln/mm3 (4.50-5.90); White Blood Count 7.0 Thou/mm3 (3.8-10.6)
[2025-07-12 09:12] LABS: Bilirubin,Urine Negative (Negative); Blood,Urine Trace (Negative); Clarity,Urine Clear (Clear/Hazy); Color,Urine Yellow (Lt Yel-Yel); Culture Indicated,Urine Not Indicated; Glucose, Urine Negative (Negative); Ketones,Urine Negative (Negative); Leukocyte Esterase,Urine Positive (Negative); Nitrite,Urine Negative (Negative); PH,Urine 6.0 (5.0-7.0); Protein,Urine Negative (Neg - Trace); RBC,Urine 3 /hpf (0-3); Specific Gravity,Urine 1.018 (1.001-1.035); Urobilinogen,Urine Negative mg/dL (0.0-1.0); WBC,Urine 3 /hpf (0-5)
[2025-07-12 09:17] LABS: B-Type Natriuretic Peptide < 20 pg/mL (0-100)
[2025-07-12 09:21] LABS: Alanine Aminotransferase 11 U/L (10-49); Albumin, Serum 4.5 gm/dL (3.4-4.8); Albumin/Globulin Ratio 2.0 (1.2-2.2); Alkaline Phosphatase 160 U/L (46-116); Anion Gap 7 (7-16); Aspartate Amino Transferase 15 U/L (0-34); BUN/Creatinine Ratio 12 Ratio (12-20); Bilirubin,Direct 0.3 mg/dL (0.0-0.3); Bilirubin,Total 0.7 mg/dL (0.3-1.2); Blood Urea Nitrogen 15 mg/dL (9-23); Calcium 9.2 mg/dL (8.3-10.6); Calcium (Corrected) 9.2 mg/dL (8.5-10.1); Carbon Dioxide 31.8 mMol/L (20.0-31.0); Chloride 103 mMol/L (98-107); Creatinine (Component) 1.3 mg/dL (0.6-1.3); Estimated Creatinine Clearance 67.4 mL/min (>60); Globulin 2.2 gm/dL (2.3-3.5); Glucose 133 mg/dL (74-106); Magnesium 1.9 mg/dL (1.6-2.6); Osmolality,Calculated 285 (275-295); Potassium 3.9 mMol/L (3.4-5.1); Sodium 142 mMol/L (136-145); Thyroid Stimulating Hormone 0.32 uIU/mL (0.55-4.78); Total Protein 6.7 gm/dL (5.7-8.2); Troponin I < 0.002 ng/mL (0.0-0.045); eGFR > 60 See Note
[2025-07-12 09:26] LABS: D-Dimer 583 ng/mL (<600)
[2025-07-12 09:34] LABS: Influenza A Ag Negative; Influenza B Ag Negative
[2025-07-12 10:15] LABS: Free T3 2.8 pg/mL (2.3-4.2); Free T4 (Free Thyroxine) 1.65 ng/dL (0.89-1.76)
[2025-07-12] MEDS: cefTRIAXone/D5w 1gm IV premix 1 GM/50 ML BAG IV (11:56)
[2025-07-12] MEDS: MethylPREDNISolone SOD SUCC 62.5 MG/ML 2ML VIAL 125 MG IVP (11:56)
[2025-07-12] MEDS: AZITHROMYCIN 250 MG TABLET 500 MG PO (11:56)
[2025-07-12] MEDS: ALBUTEROL/IPRATROPIUM (Duoneb) RT SOL 3 ML NEBU INH (12:20)
== END 2025-07-12 12:40 | disposition home or self-care (01) ==
PROVIDERS: Emergency Provider Emergency Medicine; PCP Nurse Practitioner Family
DX: J18.9 Pneumonia, unspecified organism (principal); J90 Pleural effusion, not elsewhere classified
CPT/HCPCS: 36415; 36600; 71045; 80053; 81001; 82248; 82803; 83735; 83880; 84439; 84443; 84481; 84484; 85025; 85379; 87502; 87635; 93005; 94640; 96374; 99284; A9270; J0696; J2919

== ENCOUNTER 2025-07-31 13:52 | Emergency (ER) | payer MEDICAID, SELFPAY ==
[2025-07-31 14:11] VITALS: BP 161/80; PULSE 77; RESP 18; TEMP 36.5; O2SAT 95; BMI 26.7
--- NOTE | 2025-07-31 14:37 | XR_ITS ---
Examination: Foot, left, 3 views Technique: AP, oblique, lateral views foot, 3 views Date and time of exam: July 31, 2025, 1445 hours INDICATIONS: Left foot swelling and pain beginning 1 week ago. FINDINGS: Severe osteopenia No fracture Moderate narrowing first metatarsophalangeal joint No vanessa area of cortical bone destruction Soft tissue swelling dorsum of the foot IMPRESSION: Severe osteopenia No vanessa cortical bone destruction
--- NOTE | 2025-07-31 14:38 | PD.EDWOUND ---
ED Wound/Laceration-RME/HPI General Chief Complaint: Wound/Laceration Stated Complaint: Wound to left toe X 1 week Time Seen by Provider: 07/31/25 14:32 Arrival date/time: 07/31/25 13:52 Limitations: no limitations RME / HPI RME / HPI narrative: 60-year-old diabetic male with tetanus up-to-date last year states his left great toe started to ooze and was sent here by PCP. Had been seeing wound care however his prior authorization . States this time the toe does not look bad but wanted it looked at since his PCP sent him here. Currently on OxyContin for pain at home. No fever. Requesting wound care and further evaluation. States PCP was worried that he was going to require admission like earlier this year. Related Data Home Medications ?Medication ?Instructions ?Recorded ?Confirmed trazodone 100 mg tablet 100 mg PO HS 06/19/21 07/30/24 oxycodone 30 mg tablet 30 mg PO BID 06/20/21 07/30/24 albuterol 90 mcg/actuation aerosol 180 mcg inhalation [id number] PRN 04/23/22 07/30/24 inhaler Shortness Of Breath carvedilol 3.125 mg tablet 1 tab PO BID 04/23/22 07/30/24 cyclobenzaprine 10 mg tablet 1 tab PO TID 04/23/22 07/30/24 gabapentin 600 mg tablet 1 tab PO TID 04/23/22 07/30/24 loratadine 10 mg tablet 10 mg PO QDAY 04/23/22 07/30/24 semaglutide 0.25 mg or 0.5 mg (2 0.5 mg subcut QWEEK 04/23/22 07/30/24 mg/1.5 mL) subcutaneous pen injector (Ozempic) metformin 500 mg tablet 500 mg PO BID 07/30/24 07/30/24 rivaroxaban 20 mg tablet (Xarelto) 20 mg PO QDAY 07/30/24 07/30/24 Previous Rx's ?Medication ?Instructions ?Recorded cyclobenzaprine 10 mg tablet 10 mg PO BID PRN muscle spasm #10 02/21/25 tabs tramadol 50 mg tablet 50 mg PO Q8H PRN pain #12 tabs 02/21/25 albuterol sulfate 90 mcg/actuation 2 puff inhalation Q6H PRN 07/12/25 aerosol inhaler shortness of breath or wheezing #8.5 grams cefdinir 300 mg capsule 300 mg PO BID #14 caps 07/12/25 ciprofloxacin HCl 500 mg tablet 500 mg PO Q12H 10 days #20 tabs 07/31/25 (Cipro) ciprofloxacin HCl 500 mg tablet 500 mg PO Q12H 10 days #20 tabs 07/31/25 (Cipro) hydrocodone 5 mg-acetaminophen 325 1 tab PO BID PRN pain 7 days #14 07/31/25 mg tablet tabs Allergies Allergy/AdvReac Type Severity Reaction Status Date / Time No Known Allergies Allergy Verified 07/31/25 13:56 Review of Systems Review of Systems Systems Reviewed: All systems reviewed, normal except as documented Constitutional Constitutional: Denies fever(s) Musculoskeletal Musculoskeletal: Reports as per HPI Integumentary/Breasts Skin/Breast: Reports as per HPI ED Exam General Limitations: Present no limitations General appearance: Present alert and in no apparent distress Eye Eye exam: Present normal appearance, PERRL and EOMI Respiratory Respiratory exam: Present normal lung sounds bilaterally Cardiovascular Cardiovascular exam: Present regular rate, normal rhythm and normal heart sounds Extremities Exam Extremities exam: Present full ROM and tenderness (Left great toe with bruising to the dip,skin changes along blister.) Back Exam Back exam: Present normal inspection and full ROM Psychiatric Psychiatric exam: Present normal affect and normal mood Skin Skin exam: Present warm, dry, intact and normal color Course Quality Measures none Orders Category Date Time Status XR foot comp LT min 3V Stat Exams 07/31/25 14:37 Completed CBC Stat Lab 07/31/25 14:45 Completed CMP [Comprehensive Metabolic Panel] Stat Lab 07/31/25 14:45 Completed CRP [C-Reactive Protein] Stat Lab 07/31/25 14:45 Completed Lactic Acid [Lactate (Lactic Acid)] Stat Lab 07/31/25 14:45 Completed Sed Rate (ESR) Stat Lab 07/31/25 14:45 Completed VBG [Venous Blood Gas] Stat Lab 07/31/25 14:45 Completed Ciprofloxacin HCl [Ciprofloxacin] Med 07/31/25 15:59 Discontinued 500 mg PO X1 ONE HYDROcodone*/APAP 5/325 [[place] 5/325] Med 07/31/25 14:37 Discontinued 1 tab PO X1 ONE Vital Signs Vital signs: Vital Signs Temperature 97.7 F 07/31/25 14:11 Pulse Rate 77 07/31/25 14:11 Respiratory Rate 18 07/31/25 14:11 Blood Pressure 161/80 H 07/31/25 14:11 Pulse Oximetry (%) 95 07/31/25 14:11 Oxygen Delivery Method Room Air 07/31/25 14:11 Wound / Laceration MDM Narrative MDM Narrative:: Workup for osteo patient does not require admission at this time can follow-up outpatient with wound care new course of antibiotics given advised follow-up with PCP for referral to wound care return to ER if symptoms worsen Patient data External records reviewed:: [facility] previous records Clinical information provided by:: patient and family Social determinants that could affect healthcare access:: other (specify) (Sent by PCP) Patient has the following chronic illnesses:: Diabetes Chronic foot ulcers How is presenting disease/condition affected by chronic disease/condition?: caused by Evaluation data The following diagnostics were reviewed and interpreted by me:: lab results and radiology exam(s) Lab and/or radiology exams considered but not ordered:: Ultrasound of the foot was considered however unlikely to have blood clot Interpretation Summary: Although some inflammatory markers are elevated very minimal Normal CBC, CMP, and VBG does not warrant admission X-ray does not show gas or osteo requiring admission Medications / Prescriptions Medications or Prescriptions considered but not ordered:: Narcotics are considered however patient is on pain contract for oxycodone Medication administrations:: Medication Administration History Discontinued Medications Hydrocodone Bitart/Acetaminophen (Hydrocodone/Apap 5/325 Tablet) 1 tab PO X1 ONE Stop: 07/31/25 14:38 Last Admin: 07/31/25 16:07 Dose: 1 tab Documented By: SONAL Ciprofloxacin (Ciprofloxacin Hcl 250 Mg Tablet) 500 mg PO X1 ONE Stop: 07/31/25 16:00 Last Admin: 07/31/25 16:07 Dose: 500 mg Documented By: SONAL See above Consultations Consultation(s) initiated? (list below): No Diagnosis Wound Differential Diagnosis: abrasion, avulsion of skin and other (Osteomyelitis, gangrene,) Most likely diagnosis given after review of the tests above:: Acute on chronic foot ulcer Cellulitis Admission Indicated Admission indicated?: not indicated Admission Request Was there a request for admission?: No Disposition Plan Disposition Plan: Discharge Discharge Attestation Discharge Attestation: The patient and all family members were given an opportunity to ask questions and understood the discharge instructions. Discharge instructions specifically effects, indications for sooner follow up or return to the emergency department, and the expected course of current diagnosis. Patient condition: Stable Discharge Plan Plan Patient Disposition: HOME (Self Care) Discharge Disposition comment: Follow-up with PCP in 2 to 3 days Prescriptions/Referrals Prescriptions/Med Rec: New ciprofloxacin HCl [Cipro] 500 mg tablet 500 mg PO Q12H 10 Days Qty: 20 0RF hydrocodone-acetaminophen 5-325 mg tablet 1 tab PO BID MDD 2 PRN (Reason: pain) 7 Days Qty: 14 0RF ciprofloxacin HCl [Cipro] 500 mg tablet 500 mg PO Q12H 10 Days Qty: 20 0RF No Action metformin 500 mg tablet 500 mg PO BID Xarelto 20 mg tablet 20 mg PO QDAY Rx Instructions: must administer with evening meal trazodone 100 mg tablet 100 mg PO HS Patient Comments: TAKE ONE TABLET BY MOUTH EVERY EVENING AT BED TIME oxycodone 30 mg tablet 30 mg PO BID Patient Comments: TAKE ONE TABLET BY MOUTH TWICE DAILY gabapentin 600 mg tablet 1 tab PO TID Ozempic 0.25 mg or 0.5 mg(2 mg/1.5 mL) Pen Injector 0.5 mg SUBCUT QWEEK cyclobenzaprine 10 mg tablet 1 tab PO TID carvedilol 3.125 mg tablet 1 tab PO BID Patient Comments: TAKE ONE TABLET BY MOUTH TWICE DAILY FOR BLOOD PRESSURE WITH FOOD loratadine 10 mg Tablet 10 mg PO QDAY albuterol 90 mcg/actuation Aerosol 180 mcg INHALATION [id number] PRN (Reason: Shortness Of Breath) Rx Instructions: q 4 to 6 hours tramadol 50 mg tablet 50 mg PO Q8H PRN (Reason: pain) Qty: 12 0RF cyclobenzaprine 10 mg tablet 10 mg PO BID PRN (Reason: muscle spasm) Qty: 10 0RF Rx Instructions: Do not take with tramadol at the same time albuterol sulfate 90 mcg/actuation HFA aerosol inhaler 2 puff inhalation Q6H PRN (Reason: shortness of breath or wheezing) Qty: 8.5 0RF cefdinir 300 mg capsule 300 mg PO BID Qty: 14 0RF Problem List Clinical Impression: Diabetic foot ulcer, Cellulitis Patient/Caregiver Discharge Instructions Education Materials: Diabetes PAD Print Language: Kyrgyz Stand Alone Forms: Michelle Award Info., Patient Portal Info Letter PA/CANCELING MACHINE OPERATOR Supervising Physician PA/CANCELING MACHINE OPERATOR Supervising Physician: Dr. Sheth
[2025-07-31 14:55] LABS: Base Excess, Venous 6 (-3-3); O2 Saturation, Venous 89 % (96-97); PCO2, Venous 42 mmHg (36-56); PO2, Venous 43 mmHg (15-58); pH, Venous 7.48 (7.33-7.66)
[2025-07-31 14:56] LABS: Lactate (Lactic Acid) 1.3 mMol/L (0.4-2.0)
[2025-07-31 15:00] LABS: Basophils # (Auto) 0.1 Thou/mm3 (0.0-0.2); Basophils % (Auto) 1 % (0-2.5); Eosinophils # (Auto) 0.2 Thou/mm3 (0.0-0.5); Eosinophils % (Auto) 3 % (0-10); Mean Corpuscular Volume 87 fL (80-100); Monocytes # (Auto) 0.6 Thou/mm3 (0.0-0.8); Monocytes % (Auto) 9 % (0-12); Neutrophils # (Auto) 4.4 Thou/mm3 (1.8-7.7); Nucleated Red Blood Cell # 0.00 Thou/mm3 (0.00-0.00); Nucleated Red Blood Cell % 0 /100 WBC (0); Platelet Count 128 Thou/mm3 (140-440)
[2025-07-31 15:02] LABS: Hematocrit 46.8 % (41.0-53.0); Hemoglobin 14.3 g/dL (13.5-16.0); Immature Granulocytes Auto 0.02 Thou/mm3 (0.00-0.00); Lymphocytes # (Auto) 1.3 Thou/mm3 (1.0-4.8); Lymphocytes % (Auto) 20 % (10-50); Mean Corpuscular HGB Conc 30.6 g/dl (31.0-37.0); Mean Corpuscular Hemoglobin 26.7 pg (25.0-35.0); Neutrophils % (Auto) 67 % (37-80); RDW Standard Deviation 50.0 fL (35.1-43.9); Red Blood Count 5.36 Miln/mm3 (4.50-5.90); White Blood Count 6.6 Thou/mm3 (3.8-10.6)
[2025-07-31 15:17] LABS: Alanine Aminotransferase 12 U/L (10-49); Albumin, Serum 4.4 gm/dL (3.4-4.8); Albumin/Globulin Ratio 1.6 (1.2-2.2); Alkaline Phosphatase 174 U/L (46-116); Anion Gap 5 (7-16); Aspartate Amino Transferase 15 U/L (0-34); BUN/Creatinine Ratio 7 Ratio (12-20); Blood Urea Nitrogen 9 mg/dL (9-23); Calcium 9.1 mg/dL (8.3-10.6); Calcium (Corrected) 9.1 mg/dL (8.5-10.1); Carbon Dioxide 32.3 mMol/L (20.0-31.0); Chloride 103 mMol/L (98-107); Creatinine (Component) 1.3 mg/dL (0.6-1.3); Estimated Creatinine Clearance 67.4 mL/min (>60); Globulin 2.7 gm/dL (2.3-3.5); Glucose 130 mg/dL (74-106); Osmolality,Calculated 280 (275-295); Potassium 4.3 mMol/L (3.4-5.1); Sodium 140 mMol/L (136-145); Total Protein 7.1 gm/dL (5.7-8.2); eGFR > 60 See Note
[2025-07-31 15:23] LABS: Bilirubin,Total 0.4 mg/dL (0.3-1.2); C-Reactive Protein < 0.5 mg/dL (0.0-0.9)
[2025-07-31 15:24] LABS: Sed Rate (ESR) 28 mm/hr (0-20)
[2025-07-31] MEDS: CIPROFLOXACIN HCL 250 MG TABLET 500 MG PO (16:07)
[2025-07-31] MEDS: HYDROcodone/APAP 5/325 TABLET 1 TAB PO (16:07)
== END 2025-07-31 16:18 | disposition home or self-care (01) ==
LOC: SERX 16:10
PROVIDERS: Physician Assistant; Emergency Provider Emergency Medicine
DX: E11.621 Type 2 diabetes mellitus with foot ulcer (principal); L97.529 Non-pressure chronic ulcer of other part of left foot with unspecified severity; L03.032 Cellulitis of left toe; Z79.85 Long-term (current) use of injectable non-insulin antidiabetic drugs; Z79.84 Long term (current) use of oral hypoglycemic drugs
CPT/HCPCS: 36415; 73630; 80053; 82010; 82803; 83605; 85025; 85652; 86140; 99283; A9270

== ENCOUNTER → 2025-08-09 | Outpatient (CLI) | payer OTHER, SELFPAY | END | disposition home or self-care (01) | PROVIDERS: PCP Student in an Organized Health Care Education/Training Program; Referring Provider Student in an Organized Health Care Education/Training Program; Visit Provider Student in an Organized Health Care Education/Training Program | DX: I96 Gangrene, not elsewhere classified (principal); S91.102A Unspecified open wound of left great toe without damage to nail, initial encounter; S91.105A Unspecified open wound of left lesser toe(s) without damage to nail, initial encounter; X58.XXXA Exposure to other specified factors, initial encounter; L97.522 Non-pressure chronic ulcer of other part of left foot with fat layer exposed; N17.9 Acute kidney failure, unspecified; F17.200 Nicotine dependence, unspecified, uncomplicated; E11.40 Type 2 diabetes mellitus with diabetic neuropathy, unspecified; M19.90 Unspecified osteoarthritis, unspecified site; G89.29 Other chronic pain; I11.9 Hypertensive heart disease without heart failure | CPT/HCPCS: 11042; 99212; A9270; G0463 ==

== ENCOUNTER → 2025-08-23 | Outpatient (CLI) | payer OTHER, SELFPAY | END | disposition home or self-care (01) | LOC: SWHD 13:59 | PROVIDERS: PCP Nurse Practitioner Family; Referring Provider Nurse Practitioner Family; Visit Provider Student in an Organized Health Care Education/Training Program | DX: I96 Gangrene, not elsewhere classified (principal); S91.102A Unspecified open wound of left great toe without damage to nail, initial encounter; S91.105A Unspecified open wound of left lesser toe(s) without damage to nail, initial encounter; X58.XXXA Exposure to other specified factors, initial encounter; L97.522 Non-pressure chronic ulcer of other part of left foot with fat layer exposed; N17.9 Acute kidney failure, unspecified; F17.200 Nicotine dependence, unspecified, uncomplicated; E11.40 Type 2 diabetes mellitus with diabetic neuropathy, unspecified; M19.90 Unspecified osteoarthritis, unspecified site; G89.29 Other chronic pain; I11.9 Hypertensive heart disease without heart failure | CPT/HCPCS: 11042; A9270 ==